=== PATIENT | female | born 1985 | race Caucasian/White ===

== ENCOUNTER 2020-07-17 15:19 | Outpatient (REF) | payer MEDICAID, SELFPAY | END 2020-07-17 15:20 | disposition home or self-care (01) | LOC: HO.LAB 15:19 | PROVIDERS: PCP Internal Medicine; Visit Provider Internal Medicine | DX: Z20.828 Contact with and (suspected) exposure to other viral communicable diseases (principal) | CPT/HCPCS: 87635 ==

== ENCOUNTER 2020-09-26 10:36 | Outpatient (REF) | payer MEDICAID, SELFPAY ==
--- NOTE | 2020-09-26 10:40 | CT_ITS ---
EXAMINATION: CT HEAD WITHOUT CONTRAST CLINICAL INFORMATION: Headaches. COMPARISON: None TECHNIQUE: Contiguous axial imaging was performed from the skull base to vertex without intravenous administration of contrast. This CT examination was performed using dose optimization techniques as appropriate, variously including the following: *Automated exposure control *Adjustment of mA and/or kV according to patient size (this includes techniques or standardized protocols for targeted exams where dose is matched to indication/reason for exam; i.e. extremities or head) *Use of iterative reconstruction technique DLP: 875 mGy-cm FINDINGS: There is no evidence of acute intracranial hemorrhage or territorial infarction. No abnormal mass effect or midline shift is seen. Jiménez to white matter differentiation is well preserved. No extra-axial fluid collections are identified. The ventricles are normal in size. There is no abnormal attenuation within the brain parenchyma. The osseous structures and soft tissues are normal. The mastoid air cells and visualized portions of the paranasal sinuses are well aerated. CT/CT head/brain wo con IMPRESSION: No acute intracranial process seen.
== END 2020-09-26 10:37 | disposition home or self-care (01) ==
LOC: HO.CT 10:36
PROVIDERS: PCP Internal Medicine; Visit Provider Internal Medicine
DX: R51.9 Headache, unspecified (principal)
CPT/HCPCS: 70450

== ENCOUNTER 2020-09-26 11:11 | Outpatient (REF) | payer MEDICAID, SELFPAY | END 2020-09-26 11:12 | disposition home or self-care (01) | LOC: HO.LAB 11:11 | PROVIDERS: Visit Provider Internal Medicine | DX: Z20.828 Contact with and (suspected) exposure to other viral communicable diseases (principal) | CPT/HCPCS: 36415; C9803; U0003 ==

== ENCOUNTER 2020-10-12 10:57 | Outpatient (REF) | payer MEDICAID, SELFPAY | END 2020-10-12 10:58 | disposition home or self-care (01) | LOC: HO.LAB 10:57 | PROVIDERS: Visit Provider Internal Medicine | DX: Z20.822 Contact with and (suspected) exposure to COVID-19 (principal) | CPT/HCPCS: 36415; C9803; U0003 ==

== ENCOUNTER 2021-08-22 07:55 | Outpatient (REF) | payer MEDICAID, SELFPAY ==
--- NOTE | ~2021-08-22 | XR_ITS ---
EXAMINATION: XR KNEE, BILATERAL XR KNEE, LEFT CLINICAL INFORMATION: Right knee pain. COMPARISON: 06/23/2019 TECHNIQUE: AP standing view of both knees. Lateral and sunrise views of the left knee. FINDINGS: Left knee: No fracture or subluxation. Compartmental joint spaces are maintained. Small marginal osteophytes noted at the medial compartment. No joint effusion. The soft tissues appear unremarkable. Right knee: No fracture or subluxation. Small osteophytes at the medial and lateral compartments noted. XR/XR knee LT 2V IMPRESSION: Mild degenerative changes of the medial compartment of the left knee with osteophyte formation. This is similar to prior. Small marginal osteophytes of the right knee medial and lateral compartments.
--- NOTE | ~2021-08-22 | XR_ITS ---
EXAMINATION: XR KNEE, BILATERAL XR KNEE, LEFT CLINICAL INFORMATION: Right knee pain. COMPARISON: 06/23/2019 TECHNIQUE: AP standing view of both knees. Lateral and sunrise views of the left knee. FINDINGS: Left knee: No fracture or subluxation. Compartmental joint spaces are maintained. Small marginal osteophytes noted at the medial compartment. No joint effusion. The soft tissues appear unremarkable. Right knee: No fracture or subluxation. Small osteophytes at the medial and lateral compartments noted. XR/XR knee standing BI IMPRESSION: Mild degenerative changes of the medial compartment of the left knee with osteophyte formation. This is similar to prior. Small marginal osteophytes of the right knee medial and lateral compartments.
== END 2021-08-22 07:56 | disposition home or self-care (01) ==
LOC: HO.HOSX 07:55
PROVIDERS: Visit Provider Physician Assistant
DX: M17.12 Unilateral primary osteoarthritis, left knee (principal); M25.561 Pain in right knee; M25.562 Pain in left knee
CPT/HCPCS: 73560; 73565; 99202

== ENCOUNTER 2021-10-08 08:15 | Outpatient (REF) | payer MEDICAID, SELFPAY ==
[2021-10-10 13:37] LABS: HPV mRNA E6/E7 rflx Not Detected (Not Detected)
== END 2021-10-08 08:16 | disposition home or self-care (01) ==
LOC: HO.LAB 08:15
PROVIDERS: PCP Internal Medicine; Visit Provider Obstetrics & Gynecology
DX: Z01.419 Encounter for gynecological examination (general) (routine) without abnormal findings (principal); Z11.51 Encounter for screening for human papillomavirus (HPV)
CPT/HCPCS: 87624; 88142

== ENCOUNTER 2021-10-17 13:00 | Outpatient (RCR) | payer MEDICAID, SELFPAY | END 2021-11-17 09:22 | disposition home or self-care (01) | LOC: HO.PT 13:00 | PROVIDERS: PCP Internal Medicine; Visit Provider Physician Assistant | DX: M17.12 Unilateral primary osteoarthritis, left knee (principal) | CPT/HCPCS: 97110; 97161 ==